=== PATIENT | male | born 1990 | race Caucasian/White ===

== ENCOUNTER → 2021-01-13 | Outpatient (CLI) | payer OTHER ==
--- NOTE | 2021-01-13 14:52 | CONS ---
CONSULTATION DATE OF SERVICE: 01/13/2021 This 30-year-old gentleman has been evaluated [facility] for possible obstructive sleep apnea-hypopnea syndrome and tiredness and sleepiness during the day. HISTORY OF PRESENT ILLNESS/SLEEP-WAKE EVALUATION: According to the patient, he had a sleep study about 10 years ago which showed that he had obstructive sleep apnea-hypopnea syndrome with apnea-hypopnea index . He was tried on CPAP at that time but was not able to use CPAP. At present, his sleep schedule is from 10 p.m. to 8 a.m. basically 7 days a week. No problems with falling asleep. No TV in bedroom. He sleeps in different positions. He moves a lot during the night. He wakes up multiple times with two episodes of nocturia. He grinds his teeth. In the morning the patient wakes up tired, has problems with memory, concentration, irritability. He complains of excessive fatigue and sleepiness during the day, but usually he does not take naps because he tries to fight the sleepiness and not take naps. [place] Sleepiness Scale is 4. No history of hypnagogic hallucinations, sleep paralysis or cataplexy. PAST MEDICAL HISTORY: Positive for increased blood pressure in the physician office, migraines, hyperlipidemia. SOCIAL HISTORY: Negative for smoking. Alcohol consumption occasional. MEDICATIONS: Acetaminophen with and caffeine for migraines. FAMILY HISTORY: Asthma, sinus problems, diabetes. PHYSICAL EXAMINATION: GENERAL: Pleasant gentleman without distress. VITAL SIGNS: BP 122/73, HR 55, RR 16, height 6 feet 1/2 inch, weight 226.0, body mass index 30.2, temperature 97.2, oxygen saturation at room air 97%. HEENT: PERRLA, EOMI, evaluation of oropharynx showed tongue protrudes midline. Low position of soft palate; Mallampati III. NECK: Supple, no JVD. Thyroid is not palpable. Neck measures 16-1/4 inches in circumference. LUNGS: Clear to percussion and to auscultation. Good air exchange. No wheezing or rhonchi. HEART: S1, S2 regular. No murmurs, gallops, or rubs. ABDOMEN: Soft and nontender. Bowel sounds are present. No organomegaly appreciated. EXTREMITIES: No clubbing or cyanosis. LICENSED INSURANCE AGENT: Awake, alert, and oriented X3. Cranial nerves 2 to 7 intact. There is no fasciculation or atrophy. noted. No focal deficits observed. IMPRESSION: 1. Multiple awakenings from sleep, moderately low position of soft palate, borderline size of the neck at 16-1/4 inches in circumference, history of obstructive sleep apnea-hypopnea syndrome in the past; possible obstructive sleep apnea-hypopnea syndrome. 2. Significant amount of movements during sleep, possibly periodic limb movements. 3. Migraines. 4. History of hypertension in medical office. Normal blood pressure in our office today. 5. Hyperlipidemia. PLAN: 1. Polysomnography for evaluation of patient's breathing during sleep. 2. CPAP/BiPAP titration if sleep study confirms obstructive sleep apnea-hypopnea syndrome. 3. Preferable position during sleep on the side. 4. No driving if patient feels any sleepiness. 5. I will see patient for follow up visit to explain results of testing and following plan. Thank you very much for referring this patient for consultation. Sincerely, Khurram Diaz MD, PhD, FAASM Diplomat of [place] [employer] Sleep Medicine [employer] of [place] [employer] Pellet Preparation Operator of [facility] [place] MMODL / IJN: [id number] /
== END ==
LOC: SLEEP 13:39
PROVIDERS: ATTEND Internal Medicine
DX: G47.8 Other sleep disorders (principal); G43.909 Migraine, unspecified, not intractable, without status migrainosus; I10 Essential (primary) hypertension; E78.5 Hyperlipidemia, unspecified
CPT/HCPCS: 99211